=== PATIENT | female | born 1940 | race Hispanic/Latino ===

== ENCOUNTER → 2018-11-11 | Outpatient (CLI) | payer OTHER ==
[~2018-11-11] MED LIST: ASPI-1181 PO; CHOL200074 PO; DONE5TAB33 PO; EZET10 PO; FAMO40TA7 PO; FLUT15.88 NS; FOLI1TAB15 PO; LEVO75 PO; LORA10TA7 PO; METO-391 PO; VITAMIN B12 PO
== END | disposition home or self-care (01) ==
LOC: RAH 12:14
PROVIDERS: ATTEND Internal Medicine Cardiovascular Disease
DX: R10.30 Lower abdominal pain, unspecified (principal)
CPT/HCPCS: 76882

== ENCOUNTER → 2019-09-22 | Outpatient (CLI) | payer OTHER ==
[~2019-09-22] VITALS: Ht 162.6 cm; Wt 68.0 kg
[~2019-09-22] MED LIST changes: -EZET10 PO; +EZET10TA13 PO; +FLUT15.845 NS; -FLUT15.88 NS; +REGADENOSON 0.4 MG/5 ML PF SYG IVP SCH
== END | disposition home or self-care (01) ==
LOC: SHCH 09:09
PROVIDERS: ATTEND Internal Medicine Cardiovascular Disease
DX: I25.119 Atherosclerotic heart disease of native coronary artery with unspecified angina pectoris (principal)
CPT/HCPCS: 78452; 93017; 96374; A9500 ×2; J2785

== ENCOUNTER → 2022-08-18 | Outpatient (CLI) | payer MEDICARE ==
[~2022-08-18] MED LIST changes: -ASPI-1181 PO; +ASPI-1443 PO; +CEPH500B PO; +CETI10TA57 PO; -CHOL200074 PO; -DONE5TAB33 PO; -EZET10TA13 PO; +EZET10TA48 PO; -FAMO40TA7 PO; -FLUT15.845 NS; -FOLI1TAB15 PO; +IOHEXOL 350 MG/ML 100ML INFUS..BTL IV ONE; +LEVO50CA4 PO; -LEVO75 PO; -LORA10TA7 PO; +MECL-226 PO; -METO-391 PO; +MIDO10TA PO; -REGADENOSON 0.4 MG/5 ML PF SYG IVP SCH; -VITAMIN B12 PO
== END | disposition home or self-care (01) ==
LOC: RAH 11:30
PROVIDERS: ATTEND Internal Medicine Cardiovascular Disease
DX: R63.4 Abnormal weight loss (principal); I95.1 Orthostatic hypotension; E03.9 Hypothyroidism, unspecified; I10 Essential (primary) hypertension; I25.10 Atherosclerotic heart disease of native coronary artery without angina pectoris; Z95.5 Presence of coronary angioplasty implant and graft; Z85.9 Personal history of malignant neoplasm, unspecified
CPT/HCPCS: 74177; Q9967

== ENCOUNTER → 2022-08-30 | Outpatient (CLI) | payer MEDICARE ==
[~2022-08-30] MED LIST changes: -IOHEXOL 350 MG/ML 100ML INFUS..BTL IV ONE
== END | disposition home or self-care (01) ==
LOC: SHCH 08:55
PROVIDERS: ATTEND Internal Medicine Cardiovascular Disease
DX: I08.8 Other rheumatic multiple valve diseases (principal); I25.10 Atherosclerotic heart disease of native coronary artery without angina pectoris; I10 Essential (primary) hypertension; E78.5 Hyperlipidemia, unspecified
CPT/HCPCS: 93306

== ENCOUNTER → 2023-06-15 | Outpatient (CLI) | payer MEDICARE ==
[2023-06-15 12:35] LABS: BASOPHILS # (AUTO) 0.03 K/uL (0.00-0.20); BASOPHILS % (AUTO) 0.6 % (0.0-5.0); EOSINOPHILS # (AUTO) 0.03 K/uL (0.00-0.70); EOSINOPHILS % (AUTO) 0.6 % (0.0-8.0); HEMATOCRIT 39.1 % (36-48); IMMATURE GRANULOCYTE ABSOLUTE 0.01 K/uL (0-1); LYMPHOCYTES # (AUTO) 1.6 K/uL (1.0-4.8); LYMPHOCYTES % (AUTO) 34.5 % (21.0-51.0); MEAN CORPUSCULAR HEMOGLOBIN 33.2 pg (27.0-33.0); MEAN CORPUSCULAR HGB CONC 33.8 g/dL (32.0-36.0); MEAN CORPUSCULAR VOLUME 98.2 fL (79-99); MONOCYTES # (AUTO) 0.3 K/uL (0.1-1.0); MONOCYTES % (AUTO) 5.8 % (3.0-13.0); NEUTROPHILS # (AUTO) 2.7 K/uL (1.8-7.7); NEUTROPHILS % (AUTO) 58.3 % (40.0-77.0); PLATELET COUNT (AUTO) 158 K/uL (130-400); RED BLOOD CELL COUNT(AUTO) 3.98 MIL/uL (4.00-5.50); RED CELL DISTRIBUTION WIDTH 12.4 % (11.0-15.5); WHITE BLOOD COUNT (AUTO) 4.6 K/uL (4.8-10.8)
[2023-06-15 13:02] LABS: ALBUMIN 4.1 g/dL (3.5-5.0); BILIRUBIN,TOTAL 0.8 mg/dL (0.2-1.0); POTASSIUM 4.2 mmol/L (3.5-5.1); T4 (THYROXINE) 9.5 ug/dL (4.7-13.3); THYROID STIMULATING HORMONE 3.05 uIU/mL (0.36-3.74); TOTAL PROTEIN, SERUM 7.4 g/dL (6.0-8.3)
== END | disposition home or self-care (01) ==
LOC: LAB 11:28
PROVIDERS: ATTEND Internal Medicine Cardiovascular Disease
DX: R53.1 Weakness (principal)
CPT/HCPCS: 36415; 80053; 83735; 84436; 84443; 84479; 85025